=== PATIENT | male | born 1955 | race Two or more races ===

== ENCOUNTER 2018-07-11 19:13 | Emergency (ER) | payer OTHER ==
[~2018-07-11] VITALS: Ht 182.9 cm; Wt 126.1 kg
[2018-07-11 19:45] VITALS: BP 148/77
[2018-07-11] MEDS ORDERED: cefTRIAXone SOD 1,000 MG VL IM ONE (23:45)
[2018-07-11] MEDS ORDERED: TETANUS-DIPTH-ACEL PERTUSSIS 0.5ML SYRG IM ONE (23:45)
[2018-07-12] MEDS ORDERED: IBUPROFEN 800 MG TAB PO ONE (00:30)
[2018-07-12] MEDS ORDERED: NEOMYCIN-BACITRACIN-POLYM 15GM TOP OINT TOP SCH (00:45)
== END 2018-07-12 01:04 | disposition home or self-care (01) ==
LOC: ER 19:22
DX: S61.412A Laceration without foreign body of left hand, initial encounter (principal); W54.0XXA Bitten by dog, initial encounter; Y93.89 Activity, other specified; Y99.8 Other external cause status; Y92.89 Other specified places as the place of occurrence of the external cause
CPT/HCPCS: 12002; 73130; 90471; 90715; 96372; 99284; J0696

== ENCOUNTER → 2021-01-30 | Outpatient (CLI) | payer OTHER ==
[2021-01-30 16:24] LABS: BUN/Creatinine Ratio 14.5; Calcium 9.7 mg/dL (8.5-10.1); Potassium 4.4 mmol/L (3.5-5.1)
== END | disposition home or self-care (01) ==
LOC: LAB 14:34
PROVIDERS: ATTEND Student in an Organized Health Care Education/Training Program
DX: I10 Essential (primary) hypertension (principal); R73.03 Prediabetes
CPT/HCPCS: 36415; 80048; 83036